=== PATIENT | female | born 1995 | race Two or more races ===

== ENCOUNTER 2017-02-28 18:18 | Emergency (ER) | payer MEDICAID ==
[~2017-02-28] VITALS: Ht 157.5 cm; Wt 3.3 kg
[2017-03-01] MEDS ORDERED: KETOROLAC TROMETH 60MG/2ML VIAL IM ONE (00:45)
[2017-03-01 02:47] VITALS: BP 123/81
== END 2017-03-01 02:59 | disposition home or self-care (01) ==
LOC: ER 18:18
DX: S33.5XXA Sprain of ligaments of lumbar spine, initial encounter (principal); X50.9XXA Other and unspecified overexertion or strenuous movements or postures, initial encounter; Y93.89 Activity, other specified; Y92.89 Other specified places as the place of occurrence of the external cause; Y99.8 Other external cause status
CPT/HCPCS: 72100; 96372; 99284; J1885

== ENCOUNTER 2017-07-16 12:30 | Emergency (ER) | payer MEDICAID, OTHER ==
[~2017-07-16] VITALS: Ht 157.5 cm; Wt 46.7 kg
[2017-07-16 13:07] VITALS: BP 112/68
== END 2017-07-16 13:33 | disposition home or self-care (01) ==
LOC: ER 12:40
DX: J04.0 Acute laryngitis (principal)

== ENCOUNTER 2021-12-01 21:19 | Emergency (ER) | payer MEDICAID, OTHER ==
[~2021-12-01] VITALS: Ht 160 cm; Wt 44.0 kg
[2021-12-01 23:15] VITALS: BP 113/80
[2021-12-02] MEDS ORDERED: IBUP600T27 PO (03:17)
[2021-12-02] MEDS ORDERED: BACL20TA PO (03:18)
[2021-12-02 05:07] LABS: Alcohol, Urine < 3.0 mg/dL (0-10); Amphetamine Screen, Urine NEGATIVE (NEGATIVE); Barbiturate Scree,Urine NEGATIVE (NEGATIVE); Benzodiazephine Screen, Urine NEGATIVE (NEGATIVE); Cannabinoid Screen, Urine NEGATIVE (NEGATIVE); Cocaine Screen, Urine NEGATIVE (NEGATIVE); Opiate Scree,Urine NEGATIVE (NEGATIVE); Phencyclidine Screen, Urine NEGATIVE (NEGATIVE)
== END 2021-12-02 04:43 | disposition home or self-care (01) ==
LOC: ER 21:19
DX: S40.011A Contusion of right shoulder, initial encounter (principal); S59.811A Other specified injuries right forearm, initial encounter; V43.52XA Car driver injured in collision with other type car in traffic accident, initial encounter; Y93.89 Activity, other specified; Y92.89 Other specified places as the place of occurrence of the external cause; Y99.8 Other external cause status
CPT/HCPCS: 36415; 73030; 73090; 80307; 80320